=== PATIENT | male | born 1945 | race Caucasian/White ===

== ENCOUNTER 2022-04-14 13:40 | Emergency (ER) | payer MEDICARE, BC ==
[2022-04-14] MEDS ORDERED: Aspirin 81 MG Tab.Chew PO ONE (14:13)
[2022-04-14] MEDS ORDERED: Nitroglycerin/D5W 25 MG/250 ML BOTTLE IV SCH (14:15)
[2022-04-14] MEDS ORDERED: Furosemide 40 MG Tab PO ONE (16:01)
== END 2022-04-14 16:10 | disposition home or self-care (01) ==
LOC: JD.ED 13:40
DX: R07.89 Other chest pain (principal); I50.9 Heart failure, unspecified; E87.1 Hypo-osmolality and hyponatremia; I48.91 Unspecified atrial fibrillation; Z95.0 Presence of cardiac pacemaker; Z88.0 Allergy status to penicillin; Z88.5 Allergy status to narcotic agent; Z79.82 Long term (current) use of aspirin; Z79.899 Other long term (current) drug therapy
CPT/HCPCS: 36415; 71045; 71045-26; 80053; 82553; 83735; 83880; 84484; 85025; 85610; 85730; 86140; 93005; 93010; 96365; 96366; 99284; 99285-25; A9270-GY; J3490